=== PATIENT | female | born 1975 | race Caucasian/White ===

== ENCOUNTER → 2016-06-21 | Outpatient (CLI) | payer MEDICAID | LOC: WI 11:31 | PROVIDERS: ATTEND Family Medicine | DX: Z12.31 Encounter for screening mammogram for malignant neoplasm of breast (principal) | CPT/HCPCS: 77067; G0202 ==

== ENCOUNTER 2017-04-05 11:05 | Emergency (ER) | payer MEDICAID ==
--- NOTE | 2017-04-05 11:50 | ER Document Report ---
ED Extremity Problem, Upper - General Chief Complaint: Arm Injury Stated Complaint: FALL/RIGHT ARM INJURY Time Seen by Provider: 04/05/17 11:43 Mode of Arrival: Ambulatory Information source: Patient TRAVEL OUTSIDE OF THE [place] IN LAST 30 DAYS: No - HPI Patient complains to provider of: Injury, Pain Onset: Yesterday Recent injury: Yes Where: Home Quality of pain: Achy Severity of pain: Moderate Context: Fall Associated symptoms: denies: Back pain, Chest pain/discomfort, Chills, Dizziness , Fainted, Fever, Hurts to breathe, Jaw pain, Nausea, Neck pain, Numbness, Seizure, Short of breath, Sweating, Tingling, Vomiting Exacerbated by: Movement Relieved by: Rest Notes: Patient arrives with complaints of right forearm pain. She states that she was walking and tripped over a heater great and fell onto her right forearm. She has had pain to this area since this occurred. She denies hitting her head. She denies loss of consciousness. She denies neck, back, chest, abdominal pain. She denies any numbness, tingling, weakness. She denies any pain in the shoulder or the wrist. She denies any pain in the elbow. Most of her pain is in the mid forearm. She denies any nausea, vomiting, diarrhea. She denies any other injuries or any other complaints at this time. - Related Data Allergies/Adverse Reactions: acetaminophen [From Percocet] Allergy (Verified 10/18/12 00:28) meperidine HCl [From Demerol] Allergy (Verified 10/18/12 00:28) oxycodone HCl [From Percocet] Allergy (Verified 10/18/12 00:28) Past Medical History - Social History Smoking Status: Current Some Day Smoker Chew tobacco use (# tins/day): No Frequency of alcohol use: None Drug Abuse: None Family History: Reviewed & Not Pertinent Patient has suicidal ideation: No Patient has homicidal ideation: No - Past Medical History Cardiac Medical History: Reports: Hx Hypertension Renal/ Medical History: Denies: Hx Peritoneal Dialysis Past Surgical History: Reports: Hx Tubal Ligation - Immunizations Hx Diphtheria, Pertussis, Tetanus Vaccination: Yes Review of Systems - Review of Systems -: Yes All other systems reviewed and negative Physical Exam - Notes Notes: GENERAL: alert, cooperative, nontoxic, no distress. HEAD: normocephalic, atraumatic EYES: conjunctiva pink without discharge, no external redness or swelling. EARS: no external swelling, no external redness NOSE: atraumatic, no external swelling MOUTH/THROAT: mucous membranes moist and pink NECK: soft, supple, full range of motion, no meningismus. CHEST: no distress, lungs clear and equal throughout. No wheezing, rales, rhonchi. CARDIAC: regular rate and rhythm, no murmur, normal capillary refill, normal pulses. BACK: full range of motion, no CVA tenderness. EXTREMITIES: full range of motion of all extremities. No redness, no swelling. Tenderness to palpation of the right mid forearm. No deformity. No ecchymosis. Skin is intact. Compartments are soft. No tenderness to the right shoulder, elbow, wrist, hand. No snuffbox tenderness. Full flexion and extension as well as pronation and supination of the right arm. Normal pulse and sensation distally. NEURO: alert and oriented 3, no focal deficits, full range of motion of all extremities. PYSCH: appropriate mood, affect. Patient is cooperative. SKIN: pink, warm, dry, no rash. Course - Re-evaluation Re-evalutation: 04/05/17 13:12 Patient is nontoxic appearing with stable vitals. The patient injured her forearm after falling yesterday. No significant tenderness to the elbow or wrist. Neurovascularly intact. No redness or signs of infection. Compartments are soft. X-ray showed no acute abnormality per the radiologist. Patient will be placed in a sling for comfort. Discharged home with [facility]. Instructions to rest, ice, elevate. Follow-up if not better in 1 week, sooner for increased pain, fever, redness, numbness, tingling, weakness, any further concerns. The patient's emergency department workup and current diagnosis were explained to the patient and or family. Follow-up instructions were provided. Medications if prescribed were discussed. Instructions for when to return to the emergency department including specific worrisome symptoms were discussed with the patient and/or family. The patient is noted to have elevated blood pressure during today's emergency department visit. The patient was informed of this finding. The patient was instructed that this may be related to pre-hypertension and requires further evaluation with a primary care provider. The patient has no hypertensive symptoms at this time. - Diagnostic Test Radiology reviewed: Image reviewed, Reports reviewed - No acute fracture of the right forearm per the radiologist. Procedures - Immobilization Right arm Pre-Proc Neuro Vasc Exam: Normal Immobilizer type: Sling Performed by: PCT Post-Proc Neuro Vasc Exam: Normal Alignment checked and good: Yes Discharge - Discharge Clinical Impression: Sprain of right forearm Qualifiers: Encounter type: initial encounter Qualified Code(s): S63.501A - Unspecified sprain of right wrist, initial encounter Condition: Stable Disposition: HOME, SELF-CARE Instructions: Sprain (OM) Additional Instructions: Take medications as prescribed. Wear sling as needed for comfort. Rest, ice, elevate your arm. Follow-up if not better in 1 week, sooner for increased pain , fever, redness, numbness, tingling, weakness, any further concerns. Your blood pressure was elevated during today's visit. Have this rechecked with your doctor. Forms: Elevated Blood Pressure, Smoking Cessation Education Referrals: LUCILLE SAUCEDA MD [Primary Care Provider] - Follow up as needed
--- NOTE | 2017-04-05 13:05 | RADIOLOGY REPORT (SQ) ---
EXAM DESCRIPTION: FOREARM RIGHT COMPLETED DATE/TIME: 04/05/2017 12:47 pm REASON FOR STUDY: fall, pain COMPARISON: None. NUMBER OF VIEWS: Two views. TECHNIQUE: Two radiographic images acquired of the right forearm, including elbow and wrist in at le ast one projection. LIMITATIONS: None. FINDINGS: MINERALIZATION: Normal. BONES: No acute fracture. No worrisome bone lesions. SOFT TISSUES: Distal forearm soft tissue swelling. No radiopaque foreign body. OTHER: No other significant finding. IMPRESSION: Distal forearm soft tissue swelling without soft tissue gas or radiopaque foreign body. No underlying fracture TECHNICAL DOCUMENTATION: JOB ID: [id number] [employer]- All Rights Reserved
[2017-04-05 13:29] VITALS: BP 118/71
== END 2017-04-05 13:29 | disposition home or self-care (01) ==
LOC: ER 11:05
DX: S63.501A Unspecified sprain of right wrist, initial encounter (principal); M79.631 Pain in right forearm; W01.0XXA Fall on same level from slipping, tripping and stumbling without subsequent striking against object, initial encounter; Y92.009 Unspecified place in unspecified non-institutional (private) residence as the place of occurrence of the external cause; I10 Essential (primary) hypertension; F17.200 Nicotine dependence, unspecified, uncomplicated; Z88.6 Allergy status to analgesic agent; Z88.5 Allergy status to narcotic agent
CPT/HCPCS: 99283